=== PATIENT | female | born 1970 | race Caucasian/White ===

== ENCOUNTER → 2016-09-24 | Day surgery (SDC) | payer BC ==
[2016-08-17 08:35] VITALS: Ht 175.3 cm; Wt 89.1 kg
[~2016-09-24] VITALS: Ht 175.3 cm; Wt 89.1 kg
[~2016-09-24] MED LIST: ATROPINE SULFATE 0.1 MG/ML 5ML SYR IV PRN; CALC500C3 PO; DEXAMETHASONE SOD INJ 4 MG/ML VIAL ONE; EpHEDrine SULFATE INJ 50 MG/ML AMP IV PRN; FENTANYL CITRATE INJ 50 MCG/1 ML 2 ML VIAL IV PRN; FENTANYL CITRATE INJ 50 MCG/1 ML 2 ML VIAL ONE; IBUP-1105 PO; IBUPROFEN 600 MG TAB PO PRN; KETOROLAC TROMETHAMINE 30 MG/ML VIAL IV. PRN; KETOROLAC TROMETHAMINE 30 MG/ML VIAL ONE; LACTATED RINGER'S 1000ML 1,000 ML IV SCH; LIDOCAINE HCL 2% 2 ML VIAL (20MG/ML) ONE; MIDAZOLAM HCL 1 MG/ML 2ML VIAL ONE; ONDANSETRON INJ 2 MG/ML 2 ML VIAL IV PRN; ONDANSETRON INJ 2 MG/ML 2 ML VIAL ONE; OXYCODONE/ACETAMINOPHEN 5-325 TAB PO PRN; PRLSR20 PO; PROMETHAZINE HCL INJ 25 MG in SODIUM CHLORIDE 0.9% 50ML 50 ML IV PRN; PROPOFOL IV EMULSION 10 MG/ML 20 ML VIAL IV ONE; SCOPOLAMINE 1.5 MG TDSY TD ONE; SODIUM CHLORIDE 0.9% 1000ML 1,000 ML IV SCH
--- NOTE | 2016-09-24 06:58 | History & Physical Bridge - [place] ---
H&P Re-Evaluation Bridge Note: I have examined the patient, reviewed the History & Physical and in the interval since the performance of the History & Physical I have noted the following changes of clinical significance: Procedure: D+C, hysteroscopy, possible removal of polyp No changes noted
--- NOTE | 2016-09-24 07:27 | [facility] Post Operative Brief Note ---
Immediate Operative Summary Operative Date Sep 24, 2016. Pre-Operative Diagnosis Abnormal uterine bleeding Post-Operative Diagnosis Same as preop Procedure(s) Performed Dilatation And Curettage, Hysteroscopy With Myosure Surgeon Dr. Carcamo Safety Glass Installer Surgeon(s) None Estimated Blood Loss 5 mL Findings thickened endometrium. no obvious polyp Specimens A: Endometrial curettings Drains None Anesthesia General Complication(s) None Disposition Recovery Room / PACU
--- NOTE | 2016-09-24 07:27 | Discharge Instructions ---
Discharge Instructions Date of Service Sep 24, 2016. Admission Reason for Admission: Abnormal Uterine Bleeding Discharge Discharge Diagnosis / Problem: aub Discharge Goals Goal(s): Routine recovery after surgery Activity Recommendations Activity Limitations: per Instructions/Follow-up section . Instructions / Follow-Up Instructions / Follow-Up ACTIVITY RECOMMENDATIONS: * Avoid tampons, douching, hot tubs, pools, and intercourse until bleeding has stopped. * May shower as usual. * No strenuous activity for 24-48 hours. After 24-48 hours, you may do anything you feel like doing (driving and sports are okay). SPECIAL CARE INSTRUCTIONS: Special Diet: * Mild nausea may occur in the immediate post-operative period. * Take clear liquids such as tea, cola or bouillon until all nausea has subsided; you may then resume your normal diet. Special Care: * Light bleeding and vaginal spotting can last from a few days to 3-4 weeks. Call your doctor if bleeding becomes heavier than the heaviest part of your period. * Check your temperature twice a day for one week. If it goes above 100.4 degrees Fahrenheit (38.0 Celsius), notify your doctor. * Call your doctor's office for an appointment for 6 weeks after your surgery. FOLLOW-UP VISIT: Call your doctor's office for an appointment for 6 weeks after your surgery. Current Hospital Diet Patient's current hospital diet: Discharge Diet Recommended Diet: Regular Diet Procedures Procedures Performed: Dilatation And Curettage, Hysteroscopy With Myosure Pending Studies Studies pending at discharge: no Medical Emergencies . Who to Call and When: Medical Emergencies: If at any time you feel your situation is an emergency, please call 911 immediately. . Non-Emergent Contact Non-Emergency issues call your: Teacher Visually Impaired . . "Provider Documentation" section prepared by Vance Carcamo. . VTE Core Measure Inpt VTE Proph given/why not?: Treatment not indicated
--- NOTE | 2016-09-24 07:43 | OPERATIVE REPORT ---
DATE OF OPERATION: 09/24/2016 PREOPERATIVE DIAGNOSIS: Abnormal uterine bleeding. POSTOPERATIVE DIAGNOSIS: Same. PROCEDURE: D\T\C hysteroscopy with MyoSure. SURGEON: Dr. Carcamo. CLAY DRY PRESS HELPER: None. ESTIMATED BLOOD LOSS: 5 mL. FINDINGS: Thickened endometrium. No obvious polyp, but possible. SPECIMENS: Endometrial curettings. DRAINS: None. ANESTHETIC: General. DISPOSITION: Recovery room. COMPLICATIONS: None. OPERATION AND FINDINGS: Kelley was given a general anesthetic, prepped and draped in dorsolithotomy position in [facility]. Bladder drained. Uterus examined and found to be anteverted. Weighted speculum placed in the vagina. Cervix then dilated methodically starting at #13 dilator and progressing to a #23 dilator. MyoSure then placed into the uterus. Note single tooth tenaculum used to stabilize the uterus and normal saline solution I viewed the cavity. Both tubal ostia were visualized. There was no sign of perforation. There were some thickened endometrium on the posterior aspect of the fundus. As a result, I did perform D\T\C with sharp curettage and then we performed MyoSure to extract all material. At the end of the procedure I could see that we had removed anything that could appear as polypoid and there was no sign of perforation. Instruments removed from the cervix and vagina. Intraoperative Toradol given. Sponge and instrument counts correct. I attest to the content of the Intraoperative Record and any orders documented therein. Any exceptions are noted below. MTDD
[2016-09-24 08:17] VITALS: TEMP 36.8
--- NOTE | 2016-09-24 08:34 | Anesthesia Progress Nt - [facility] ---
Anesthesia Post Op Note Date & Time Sep 24, 2016 at 08:34 Vital Signs Pain Intensity: 0 Vital Signs Past 12 Hours Date Time Temp Pulse Resp B/P Pulse Ox O2 Delivery O2 Flow Rate FiO2 09/24/16 08:17 36.8 58 16 109/72 97 Room Air 09/24/16 08:11 62 15 09/24/16 08:11 59 15 98 09/24/16 08:10 100/71 09/24/16 08:09 37.2 63 12 100/71 99 Room Air 09/24/16 08:09 107/72 09/24/16 08:06 62 14 98 09/24/16 08:06 64 14 09/24/16 08:01 73 17 09/24/16 08:01 72 17 09/24/16 08:00 101/66 09/24/16 07:56 59 8 09/24/16 07:56 59 8 100 09/24/16 07:55 105/68 09/24/16 07:51 58 8 09/24/16 07:51 56 8 100 09/24/16 07:50 102/67 09/24/16 07:46 67 7 100 09/24/16 07:46 65 7 09/24/16 07:45 102/69 09/24/16 07:41 64 10 100 09/24/16 07:41 63 10 09/24/16 07:40 110/70 09/24/16 07:36 66 15 112/71 100 09/24/16 07:36 36.6 67 12 112/71 100 Diffusion Mask 6 09/24/16 07:36 68 15 09/24/16 06:33 36.9 86 20 120/82 98 Room Air Notes Mental Status: alert / awake / arousable, participated in evaluation Pt Amnestic to Procedure: Yes Nausea / Vomiting: adequately controlled Pain: adequately controlled Airway Patency, RR, SpO2: stable & adequate BP & HR: stable & adequate Hydration State: stable & adequate Anesthetic Complications: no major complications apparent
[2016-09-24 08:37] VITALS: BP 112/75; PULSE 57; O2SAT 97
== END | disposition home or self-care (01) ==
LOC: X.SURG 06:23
PROVIDERS: ATTEND Obstetrics & Gynecology
DX: N93.9 Abnormal uterine and vaginal bleeding, unspecified (principal); N84.0 Polyp of corpus uteri; Z88.2 Allergy status to sulfonamides; Z68.29 Body mass index [BMI] 29.0-29.9, adult; Z90.89 Acquired absence of other organs